=== PATIENT | male | born 1955 | race Caucasian/White ===

== ENCOUNTER 2022-04-01 08:05 | Observation (INO) ==
--- NOTE | 2022-02-21 10:12 | PAT Medication Instructions ---
Medication Instructions Date of Service February 21, 2022 Home Medications calcium carbonate 600 mg calcium (1,500 mg) tablet (Calcium) 1,200 mg PO QAM denosumab 120 mg/1.7 mL (70 mg/mL) subcutaneous solution (Xgeva) 120 mg subcut UD leuprolide (4 month) 30 mg (4 month) intramuscular syringe kit (Lupron Depot) 30 mg IM Q16W naproxen sodium 220 mg capsule (Aleve) 220 mg PO BID PRN cholecalciferol (vitamin D3) 50 mcg (2,000 unit) capsule (Vitamin D3) 50 mcg PO QAM hydrochlorothiazide 12.5 mg tablet 12.5 mg PO QAM losartan 50 mg tablet 50 mg PO QAM vitamin E 200 unit tablet 180 mg PO QAM ASK your surgeon for instructions naproxen sodium 220 mg capsule (Aleve) 220 mg PO BID PRN ASK your prescriber and surgeon denosumab 120 mg/1.7 mL (70 mg/mL) subcutaneous solution (Xgeva) 120 mg subcut UD leuprolide (4 month) 30 mg (4 month) intramuscular syringe kit (Lupron Depot) 30 mg IM Q16W STOP taking 2 weeks before surgery vitamin E 200 unit tablet 180 mg PO QAM DO NOT take the morning of surgery calcium carbonate 600 mg calcium (1,500 mg) tablet (Calcium) 1,200 mg PO QAM cholecalciferol (vitamin D3) 50 mcg (2,000 unit) capsule (Vitamin D3) 50 mcg PO QAM hydrochlorothiazide 12.5 mg tablet 12.5 mg PO QAM losartan 50 mg tablet 50 mg PO QAM Other Notes NOTHING TO EAT OR DRINK AFTER MIDNIGHT. If you have any questions please call us at [phone] or [phone] or [phone] or [phone]
--- NOTE | 2022-03-04 13:58 | Anesthesiology Consultation ---
Date of Service March 04, 2022 Assessment & Plan (1) Encounter for pre-operative examination: - COVID screening: Per assessment on 03/04: No known COVID-19 positive contacts or current COVID-19 related symptoms. Travel screen negative. Patient vaccinated. At surgeon discretion if preop Covid testing being done. - Cardiology office visit (02/08/21): "HTN.. ROCHE with negative dobutamine stress echo.. Chronic lower extremity lymphedema.. Continue hydrochlorothiazide.. Losartan.. ROCHE.. Likely multifactorial given ongoing weight gain due to sedentary lifestyle and for med therapy. Recent dobutamine stress echo was negative for inducible ischemia. Echo did show moderate MR with grade 2 diastolic dysfunction, was on Lasix in the past without relief of symptoms or improvement in his lower extremity edema.. Recommended daily structured exercise.. Should shortness of breath persist and lower extremity edema worsening can consider trial of loop diuretic" - Oncology/heme office visit (01/22/22): "Metastatic prostate cancer involving the multiple bones. Significant involvement noted in the left acetabular region which required surgical intervention (early July 2019).. Bilateral leg edema, appears to be lymphedema which has improved.. Presently he is on hormonal suppression with Lupron every 3 monthly, receiving Xgeva every 3 monthly." Chart Review Chart Review: Acceptable Risk for Surgery and Patient seen in Pre Admission Testing Teaching & Discussion Pre-Anesthesia Teaching/Discussion Notes: Instructed NPO after midnight before surgery,except medications with 15 cc of water. Medication instructions provided according to the PAT guidelines. History Surgery Operation Date: 04/01/22 12:20 Proposed Procedures p Left Total Knee Arthroplasty - Yevgeniy Lamas DO Height/Weight Height: 5 ft 9 in Weight: 127.1 kg Allergies Allergy/AdvReac Type Severity Reaction Status Date / Time No Known Drug Allergies Allergy Verified 02/20/22 09:00 Medications Home Medications Medication Instructions Recorded Confirmed Last Taken calcium carbonate 600 mg calcium 1,200 mg PO QAM 08/19/19 02/20/22 Unknown (1,500 mg) tablet (Calcium) denosumab 120 mg/1.7 mL (70 mg/mL) 120 mg subcut UD 03/07/20 02/20/22 Unknown subcutaneous solution (Xgeva) leuprolide (4 month) 30 mg (4 30 mg IM Q16W 03/07/20 02/20/22 Unknown month) intramuscular syringe kit (Lupron Depot) naproxen sodium 220 mg capsule 220 mg PO BID PRN Pain 03/07/20 02/20/22 Unknown (Aleve) cholecalciferol (vitamin D3) 50 50 mcg PO QAM 02/20/22 02/20/22 Unknown mcg (2,000 unit) capsule (Vitamin D3) hydrochlorothiazide 12.5 mg tablet 12.5 mg PO QAM 02/20/22 02/20/22 Unknown losartan 50 mg tablet 50 mg PO QAM 02/20/22 02/20/22 Unknown vitamin E 200 unit tablet 180 mg PO QAM 02/20/22 02/20/22 Unknown Past Medical History Medical History (Updated 03/05/22 @ 09:15 by Carina Tyler) Arthritis Chronic anemia History of COVID-19 03/2020 Hx of bronchiectasis Reason for lung surgery, age 18 Hypertension Prostate cancer metastatic to bone Follows with [facility] oncology (Dr. Rogers) Scoliosis Exercise / Class Metabolic Activity II 4-5 Yardwork/Stairs/Walk up hill (one FS (no CP, no SOB)) Past Family History Family History Mother Skin cancer Coronary heart disease Colorectal cancer Endometrial cancer Father Dementia Stroke Brother No problems noted. Sister Graves disease Son No problems noted. Other No family history of adverse response to anesthesia Denies family history of Ovarian cancer Prostate cancer Diabetes Myocardial infarction Breast cancer Hypertension Past Surgical History Surgical History History of appendectomy History of bronchoscopy History of colonoscopy History of lung surgery Removal of left lower lobe of lung at age 18yo History of total hip replacement 07/22/2019 Dr. Ortiz for metastatic prostate cancer S/P ORIF (open reduction internal fixation) fracture ORIF of left pathologic fracture for metastatic prostate cancer 07/22/2019 Dr. Ortiz [place] teeth removed Past Anesthesia History No Hx of Anesthesia Complications and No Family Hx of Anesthesia Complications History of PONV No Hx of PONV and No Hx of Motion Sickness Social History Smoking Status: Current some day smoker tobacco type: cigars Smoking cigarettes per day: 3-4 cigars/week Do You Dip or Chew Tobacco: No Hx Alcohol Use: Yes Alcohol type: beer and hard liquor alcohol intake frequency: a few times a week Hx Substance Use: No substance use type: does not use Review of Systems Patient denies chest pain, shortness of breath, dyspnea on exertion, fever, chills, cough, wheezing, palpitations. Physical Exam Vital Signs VITALS BP 114/71 P 69 TEMP 98.5 SP02 96%RA RESP 18 PHYSICAL Full cervical extension range of motion. Full TMJ range of motion. TMD 4 finger breaths Mallampati Score 3 Dentition: missing molars Lungs: clear throughout to auscultation Cardiac: regular rate and rhythm, no murmurs noted Spine: normal Carotid arteries: negative bruit Extremities: no edema Lab Results Anesthesia Preop Results Results Anesthesia Widget: WBC 3.24 K/ul (4.8-10.8) L 03/04/22 Hgb 11.9 g/dl (14.0-18.0) L 03/04/22 Hct 36.4 % (40.1-51.0) L 03/04/22 Plt 132 K/uL (130-400) 03/04/22 Na 135 mmol/L (136-145) L 03/04/22 K 3.7 mmol/L (3.5-5.1) 03/04/22 Cl 104 mmol/L (98-107) 03/04/22 CO2 23 mmol/L (21-32) 03/04/22 BUN 28 mg/dl (6-23) H 03/04/22 Creat 1.27 mg/dl (0.6-1.4) 03/04/22 Glucose Level 100 mg/dl (70-99(Fasting)) H 03/04/22 PT 10.6 Seconds (9.0-12.0) 03/04/22 PTT 26.2 Seconds (21.0-31.0) 03/04/22 INR 1.0 (0.9-1.1) 03/04/22 Blood Type A Positive 03/04/22 Antibody Screen NEGATIVE 03/04/22 Testing Laboratory Results Low WBC and stable anemia- will forward preop testing to PCP for continuity of care* Electrocardiogram Date: 03/04/22 NSR at 66bpm. unconfirmed report. Chest X-Ray Date: 03/04/22 FINDINGS: No lines and tubes are seen. The cardiomediastinal silhouette is normal. The lungs are clear. There is blunting of left costophrenic angle is likely due to prominent epicardial fat pad although superimposed effusion cannot be entirely excluded. Old rib fractures are seen. IMPRESSION: No acute chest disease. Stress Test Date: 10/25/20 Type: DSE Stress echo negative for inducible ischemia. At rest, normal LV size with mild concentric LVH. EF 60 to 65%. Grade 2 diastolic dysfunction. Mild AR. Moderate MR. Mild LAE. 100% MPHR. COVID-19 Risk Screen Screening Information COVID-19 Screen Date: 03/04/22 Exposure 21 Days Family/Household +COVID Last 21 Days: No Exposure 10 Days Any COVID Exposure Last 10 Days: No Symptoms Last 10 Days Experienced COVID Sx Last 10 Days: No + COVID 0-90 Days COVID + in Last 0-90 Days: No
[~2022-04-01 08:05] MED LIST: ACETAMINOPHEN 500 MG TAB PO SCH; BUPIVACAINE 0.5 % 5 MG/1 ML PF 10ML VIAL ONE; FAMOTIDINE 20 MG TAB PO SCH; GABAPENTIN 300 MG CAP PO SCH; Ketorolac (*for OR use only*) 30 MG, dexAMETHasone 4 MG, KETAMINE HCL (**OR use only) 1... INFIL SCH; LR 500ML BOLUS, THEN 15ML/HR IV SCH; LR 60ML/HR IV SCH; ROPIVACAINE 0.5% 5 MG/ML 30 ML VIAL ONE; TRANEXAMIC ACID 1,000 MG **IV Intra-op IV SCH; TRANEXAMIC ACID 1,000 MG **IV Pre-op IV SCH; dexAMETHasone 4 MG TAB PO SCH
--- NOTE | 2022-04-01 08:33 | History & Physical Report ---
Date of Service April 01, 2022 Assessment & Plan (1) Osteoarthritis of left knee: We will proceed with a left total knee arthroplasty. Postoperatively he will be started on aspirin for DVT prophylaxis and kept overnight in the hospital for postoperative medical management. He plans to use energy physical therapy upon discharge. History of Present Illness Chief Complaint: Chronic worsening osteoarthritis of the left knee. Primary Care Provider: Cheryl Thompson MD Keyon is a pleasant 66-year-old who has been dealing with chronic worsening bilateral knee pain. It has been going on for years. He has been treated at another facility for advanced arthritis of both knees. He has had multiple cortisone injections and viscosupplementation. He has done therapy without relief. He has also been dealing with some prostate cancer. He has metastasis to his lumbar spine,hispelvis, and his ribs. He says everything is stable. He is on Lupron and Xgeva for that.Unfortunately, his knee pain is getting worse. He is having trouble doing normal daily activities. He is having trouble going up and downstairs. X-rays have shown advanced osteoarthritis of the left knee. After failing conservative treatment, he has elected to proceed with a left total knee arthroplasty. Allergies Allergy/AdvReac Type Severity Reaction Status Date / Time No Known Drug Allergies Allergy Verified 02/20/22 09:00 Home Medications Medication Instructions Recorded Confirmed Type calcium carbonate 600 mg calcium 1,200 mg PO QAM 08/19/19 02/20/22 History (1,500 mg) tablet (Calcium) denosumab 120 mg/1.7 mL (70 mg/mL) 120 mg subcut UD 03/07/20 02/20/22 History subcutaneous solution (Xgeva) leuprolide (4 month) 30 mg (4 30 mg IM Q16W 03/07/20 02/20/22 History month) intramuscular syringe kit (Lupron Depot) naproxen sodium 220 mg capsule 220 mg PO BID PRN Pain 03/07/20 02/20/22 History (Aleve) cholecalciferol (vitamin D3) 50 50 mcg PO QAM 02/20/22 02/20/22 History mcg (2,000 unit) capsule (Vitamin D3) hydrochlorothiazide 12.5 mg tablet 12.5 mg PO QAM 02/20/22 02/20/22 History losartan 50 mg tablet 50 mg PO QAM 02/20/22 02/20/22 History vitamin E 200 unit tablet 180 mg PO QAM 02/20/22 02/20/22 History Past Med/Surg History Medical History Arthritis Chronic anemia History of COVID-19 03/2020 Hx of bronchiectasis Reason for lung surgery, age 18 Hypertension Prostate cancer metastatic to bone Follows with [facility] oncology (Dr. Rogers) Scoliosis Surgical History History of appendectomy History of bronchoscopy History of colonoscopy History of lung surgery Removal of left lower lobe of lung at age 18yo History of total hip replacement 07/22/2019 Dr. Ortiz for metastatic prostate cancer S/P ORIF (open reduction internal fixation) fracture ORIF of left pathologic fracture for metastatic prostate cancer 07/22/2019 Dr. Ortiz [place] teeth removed Family History Mother Skin cancer Coronary heart disease Colorectal cancer Endometrial cancer Father Dementia Stroke Brother No problems noted. Sister Graves disease Son No problems noted. Other No family history of adverse response to anesthesia Denies family history of Ovarian cancer Prostate cancer Diabetes Myocardial infarction Breast cancer Hypertension Social History Smoking Status: Current some day smoker Cigarettes Per Day: Box of 20 cigars lasts 2 months; Second Hand Exposure: No; Do You Dip or Chew Tobacco: No; Hx Alcohol Use: Yes Alcohol type: beer and hard liquor Hx Substance Use: No Preferred Language: [place] Communication Ability: Effective Visual Impairment: No Limitations Hearing Ability: Normal Amusement Equipment Operator Required: No Beliefs That Will Affect Care: None marital status: Current Living Situation: Spouse current occupational status: employed current occupation: [employer] Feels Safe at Home: Yes Safety Concerns: Feels Safe At This Time caffeine: Yes (1 cup/day) during the past year weight has: remained stable Dental Care, Regularly: No Physical Activity Frequency: Does not Exercise Seatbelt Use: always Sunscreen Use: No Assistive Devices: Glasses Review of Systems All systems reviewed & are unremarkable except as noted in HPI & below. Physical Exam On physical examination of the left knee, he has a varus deformity. He has pain over the distal medial femoral condyle and over the medial joint line.. Constitutional WD/WN, vitals as above Eyes PERRL, conjunctivae normal, anicteric sclerae ENMT external ear and nose normal, oropharynx normal Neck trachea midline, no thyromegaly Respiratory normal respiratory effort, lungs clear to auscultation Cardiovascular RRR, no murmur, no edema Gastrointestinal (Abdomen) normal bowel sounds, soft, nontender, no hepatosplenomegaly Skin no rashes, warm and dry Psychiatric A+Ox3, euthymic affect Results & Data Results & Data Laboratory Results . Diagnostic Findings X-rays of the left knee show advanced osteoarthritis with joint space narrowing osteophyte formation and [id number] articulation. PG Care Time/CCT Total # of Minutes Spent Total Time Spent with Patient: Total time spent is greater than 50% in coordination of care (as documented) at patient's floor/unit and/or counseling patient: Coding Level of Care Code None Diagnoses Osteoarthritis of left knee M17.12
[2022-04-01] MEDS ORDERED: PROPOFOL IV EMULSION 10 MG/ML 20 ML VIAL IV ONE ×2 (09:34→12:26)
[2022-04-01] MEDS ORDERED: LIDOCAINE 2% MPF LOCAL 5 ML VIAL INFIL ONE (09:34)
[2022-04-01] MEDS ORDERED: ONDANSETRON INJ 2 MG/ML 2 ML VIAL ONE (09:34)
[2022-04-01] MEDS ORDERED: MIDAZOLAM HCL 1 MG/ML 2ML VIAL ONE ×2 (09:34)
[2022-04-01] MEDS ORDERED: fentaNYL citrate 100 MCG/2 ML VIAL ONE (09:34)
[2022-04-01] MEDS ORDERED: ePHEDrine sulfate 50 MG/ML AMP IV PRN (10:14)
[2022-04-01] MEDS ORDERED: ONDANSETRON INJ 2 MG/ML 2 ML VIAL IV PRN ×2 (10:14→14:21)
[2022-04-01] MEDS ORDERED: ATROPINE SULFATE 0.1 MG/ML 10ML SYR IV PRN (10:14)
[2022-04-01] MEDS ORDERED: fentaNYL citrate 100 MCG/2 ML VIAL IV PRN (10:14)
[2022-04-01] MEDS ORDERED: ORTHO JOINT ANESTHETIC ONE (10:58)
--- NOTE | 2022-04-01 12:33 | Operative Report ---
PG Post Operative Report Pre & Post Diagnosis Operation Date: 04/01/22 10:40 Pre-Op Diagnosis: Degenerative Joint Disease Left Knee Post-Op Diagnosis: Degenerative Joint Disease Left Knee I identified the patient and participated in the time-out.: Yes Procedure Operation Date: 04/01/22 10:40 Actual Procedures p Left Total Knee Arthroplasty,Cemented(Left) - Yevgeniy Lamas DO Surgeon Yevgeniy Lamas DO Parks Recreation Director Yevgeniy Osborn PA-C Estimated Blood Loss 20 Findings Consistent with Post-Op Diagnosis Specimens Left femoral and tibial bone Description of Procedure Implants used: I used a Dania Persona total knee arthroplasty system with a size 8 femur, F tibia, 34 oval patella, and a size 10 CPS polyethylene bearing. All components were cemented in place with Biomet cement. Keyon arrived [facility] for the above procedure. He was seen in the preoperative holding area and the operative extremity was identified and signed. He was given a preoperative antibiotic, TXA, a spinal anesthetic and an adductor nerve block. He was taken back to the operating room and laid on the table in supine position. He was given basic sedation. The operative knee was then prepped and draped in sterile fashion. A timeout was done, and the patient and the operative extremity was properly identified. A midline incision was made directly over the patella. Dissection was taken down to the extensor mechanism. A subvastus arthrotomy was used. The medial retinaculum was released and the fat pad was mostly excised. The knee was flexed and the ACL, PCL, and meniscus were removed. A drill was sent down the center of the femoral canal followed by an intramedullary maribeth. Off that maribeth a distal femoral cutting block was placed. 9 mm was resected off the distal femur at 5 of valgus. A posterior referencing AP sizing guide was then placed on the distal femur. The femur measured to be a size 8. 2 drill holes were placed in 3 of external rotation. A 4-in-1 cutting block was then impacted into place. Anterior, posterior, and chamfer cuts were then made. The proximal tibia was then exposed. An external tibial alignment guide was placed. A tibial cut guide was then anchored in place and the proximal tibia was then resected. The posterior aspect of the knee was then opened up and any additional meniscus fragments and osteophytes were removed. The tibia measured to be a size F. The tibial plate was then placed in the appropriate rotation and the tibia was drilled and punched. Trial components were then placed. I used a size 10 CPS polyethylene insert. The knee was brought through a full range of motion and felt to be stable. The peg holes for the femoral component were then drilled. The patella was then everted and 9 mm was resected off the posterior aspect of the patella. The patella measured to be a size 34 oval. 3 peg holes were then drilled. A trial patella was placed. The knee was once again brought through a full range of motion and felt to be stable. Trial components were then removed. The surrounding soft tissues were injected with 100 cc of an orthopedic pain control cocktail. All components were then cemented into place with Biomet cement. The final polyethylene insert was then snapped into place. Once cement was dry the tourniquet was deflated. Hemostasis was obtained. A dilute betadyne lavage was then done for 3 minutes. The joint was then irrigated with normal saline solution. The subvastus arthrotomy was then closed with #1 Vicryl suture. The skin was closed with 2-0 Vicryl, 3-0V lock suture, and irasema. A soft compressive dressing was placed. He was then transferred to a hospital bed and taken to the postanesthesia care unit in stable condition. He tolerated the procedure well. Yevgeniy Osborn PA-C, was present for the entire procedure. He was critical for patient positioning, prepping, draping, retraction exposure, wound closure and application of sterile dressing. I attest to the content of the Intraoperative Record and any orders documented therein. Any exceptions are noted below.
--- NOTE | 2022-04-01 13:14 | XRay Report ---
XR knee LT 1 or 2V routine CLINICAL HISTORY: Surgical Post Op TECHNIQUE: 2 views of the left knee were obtained. Comparison: Comparison is made to left knee radiographs 07/12/2019 FINDINGS: Patient is status post total knee arthroplasty with expected postsurgical changes including soft tiss ue swelling and subcutaneous emphysema. No periarticular lucency or hardware fracture is seen. IMPRESSION: No evidence of acute osseous injury. ACT 112: Negative or not required by law. Electronically signed by: Yves Owen M.D. 04/01/2022 1:13 PM
--- NOTE | 2022-04-01 13:14 | Anesthesiology Progress Note ---
Date of Service April 01, 2022 Anesthesia Post Procedure Vital Signs Vital Signs: Temp Pulse Pulse Resp BP BP Pulse Ox 04/01/22 13:10 57 L 15 133/69 98 04/01/22 13:00 54 L 18 133/78 99 04/01/22 12:50 98.6 F 57 L 16 104/68 98 04/01/22 08:53 98.4 F 63 18 147/65 H 98 04/01/22 08:53 O2 Del Method O2 Flow Rate 04/01/22 13:10 Room Air 04/01/22 13:00 Oxymask 4 04/01/22 12:50 Oxymask 4 04/01/22 08:53 Room Air 04/01/22 08:53 Room Air Pain Intensity Left Knee: Pain Intensity: 2 Transfer of Care Handoff Completed per policy Notes Mental Status: alert / awake / arousable and participated in evaluation Patient Amnestic to Procedure: Yes Nausea / Vomiting: adequately controlled Pain: adequately controlled Airway Patency, RR, SpO2: stable & adequate BP & HR: stable & adequate Hydration State: stable & adequate Neuraxial Anesthesia: was administered and sensory block is resolving Anesthetic Complications: no major complications apparent and Pt Satisfied with anesthetic care
[2022-04-01] MEDS ORDERED: HYDROmorphone INJ 0.5 MG/0.5 ML SYR IV PRN (14:21)
[2022-04-01] MEDS ORDERED: NALOXONE HCL 0.4 MG/1 ML VIAL/CARP IV PRN (14:21)
[2022-04-01] MEDS ORDERED: SODIUM CHLORIDE 0.9% 1000ML 1,000 ML IV SCH (14:21)
[2022-04-01] MEDS ORDERED: MAGNESIUM HYDROXIDE SUSP 30 ML UDC PO PRN (14:21)
[2022-04-01] MEDS ORDERED: DENOSUMAB SQ SCH (14:21)
[2022-04-01] MEDS ORDERED: bisacodyL 10 MG SUPP PR PRN (14:21)
[2022-04-01] MEDS ORDERED: LEUPROLIDE 30 MG IM SCH (14:21)
[2022-04-01] MEDS ORDERED: METOCLOPRAMIDE HCL INJ 5 MG/ML 2 ML VIAL IV PRN (14:21)
[2022-04-01] MEDS: ACETAMINOPHEN 500 MG TAB PO SCH ×2 (15:33→21:59)
[2022-04-01] MEDS: KETOROLAC TROMETHAMINE 15 MG/ML VIAL IV SCH (17:30)
[2022-04-01] MEDS: oxyCODONE HCL IR 5 MG TAB (IMMEDIATE RELEASE) PO PRN (18:16)
[2022-04-01] MEDS: ceFAZolin 2000MG 2,000 MG/15 ML SYR IV SCH (18:16)
[2022-04-01] MEDS: ASPIRIN 81 MG ECTAB PO SCH (19:25)
[2022-04-01] MEDS: DOCUSATE SODIUM 100 MG CAP PO SCH (19:26)
[2022-04-01] MEDS ORDERED: SENNA 8.6 MG TAB PO SCH (21:00)
[2022-04-02] MEDS: KETOROLAC TROMETHAMINE 15 MG/ML VIAL IV SCH ×2 (00:23→05:45)
[2022-04-02] MEDS: oxyCODONE HCL IR 5 MG TAB (IMMEDIATE RELEASE) PO PRN ×2 (00:26→10:20)
[2022-04-02] MEDS: ceFAZolin 2000MG 2,000 MG/15 ML SYR IV SCH (03:29)
[2022-04-02 05:44] VITALS: TEMP 97.7
[2022-04-02] MEDS: ACETAMINOPHEN 500 MG TAB PO SCH (05:44)
[2022-04-02] MEDS ORDERED: dexAMETHasone 4 MG TAB PO SCH (08:00)
--- NOTE | 2022-04-02 08:04 | Orthopedic Progress Note ---
Date of Service April 02, 2022 Assessment & Plan (1) Status post left knee replacement: Plan on PT evaluation and discharge this AM. Continue with pain control and VTE prophylaxis. Follow up post op in the office in 2 weeks. Jaylan Ta is a 67 y/o male POD #1 left knee arthroplasty. Patient is sitting comfortably in chair. Pain is well controlled, continuing VTE prophylaxis. Waiting on PT evaluation before discharge to home. Review of Systems All systems reviewed & are unremarkable except as noted in HPI & below. Physical Exam ROM from 0-80 degrees. Neurovascularly intact LLE. Results & Data Results & Data Laboratory Results . Diagnostic Findings . PG Care Time/CCT Total # of Minutes Spent Total Time Spent with Patient: Total time spent is greater than 50% in coordination of care (as documented) at patient's floor/unit and/or counseling patient: Coding Level of Care Code 61708 Post Operative Follow-Up Diagnoses Status post left knee replacement Z96.652
[2022-04-02 08:36] VITALS: BP 121/75; O2SAT 99
[2022-04-02] MEDS: ASPIRIN 81 MG ECTAB PO SCH (08:41)
[2022-04-02] MEDS: DOCUSATE SODIUM 100 MG CAP PO SCH (08:41)
[2022-04-02] MEDS ORDERED: MULTIVITAMIN TAB PO SCH (09:00)
[2022-04-02] MEDS ORDERED: LOSARTAN POTASSIUM 50 MG TAB PO SCH (09:00)
[2022-04-02] MEDS ORDERED: hydroCHLOROthiazide 25 MG TAB PO SCH (09:00)
[2022-04-02 10:08] VITALS: PULSE 59
== END 2022-04-02 10:55 | disposition home health service (06) ==
LOC: 3E 08:05 → ASU 08:05